=== PATIENT | male | born 1990 | race Caucasian/White ===

== ENCOUNTER 2018-08-09 10:00 | Emergency (ER) | payer SELFPAY ==
--- NOTE | 2018-08-09 10:11 | EDM.PDOC ---
ED HPI GENERAL MEDICAL PROBLEM - General Chief Complaint: Skin Complaint Stated Complaint: VILLAR BITE ON FOOT Time Seen by Provider: 08/09/18 10:07 Source of Information: Reports: Patient History Limitations: Reports: No Limitations - History of Present Illness INITIAL COMMENTS - FREE TEXT/NARRATIVE: HISTORY AND PHYSICAL: History of present illness: Patient is a 27-year-old male who presents to the ED today with concerns of frostbite. A few days ago while at work he was wearing cowboy boots and was out cold for 18 hours. He states the following day his toes turned "black" on his feet. He states this occurred 1 week ago, his saw them made him come in to the ER today. He states that they do not bother him or cause him any pain. Reports he poked a knife into one area, because he could not "feel it". Patient states he is able to wiggle his toes just not feel the tips of them. He has not taken anything for his symptoms. He denies fever, chills, malaise, or all other review of systems. Tdap is up-to- date Review of systems: As per history of present illness and below otherwise all systems reviewed and negative. Past medical history: As per history of present illness and as reviewed below otherwise noncontributory. Surgical history: As per history of present illness and as reviewed below otherwise noncontributory. Social history: See social history for further information Family history: As per history of present illness and as reviewed below otherwise noncontributory. Physical exam: General: patient is alert, oriented, and in no acute distress. He is sitting comfortably on exam table. HEENT: Atraumatic, normocephalic, pupils equal and reactive bilaterally, negative for conjunctival pallor or scleral icterus, mucous membranes moist, TMs normal bilaterally, throat clear, neck supple, nontender, trachea midline. No drooling or trismus noted. No meningeal signs. No hot potato voice noted. Lungs: Clear to auscultation, breath sounds equal bilaterally, chest nontender. Heart: S1S2, regular rate and rhythm without overt murmur Abdomen: Soft, nondistended, nontender. Negative for masses or hepatosplenomegaly. Negative for costovertebral tenderness. Pelvis: Stable nontender. Genitourinary: Deferred. Rectal: Deferred. Skin: See extremities. Intact, warm, dry. No lesions or rashes noted. Extremities: There are dime sized area of darkened skin with minimal sensation to bilateral lateral great toes, on distal tips of toes 2-5 have trace skin discoloration. Specifically, the right big toe has a small cratered area with slightly irritated skin at the center. Patient states he is not able to feel sensation to these areas but he does have full ROM of all toes. Cap refill is less then 3 seconds. Strong DP/PT pulses. Otherwise, neurovascular unremarkable. Neuro: Awake, alert, oriented. Cranial nerves II through XII unremarkable. Cerebellum unremarkable. Motor and sensory unremarkable throughout. Exam nonfocal. Notes: On exam, he does appear to have areas of frostbite to areas on the feet. There is one area on the right big toe where it was evident that he took a knife to it to expose underlying tissue. He has been had open the wound to the underlying tissue, will treat prophylactically to prevent secondary infection. Stressed the importance of following up with our plastic surgeon for definitive care to see if any other treatment is necessary. Supportive care measures were reviewed and discussed. Voices understanding and is agreeable to plan of care. Denies any further questions or concerns at this time. Diagnostics: None Therapeutics: None Prescription: Keflex Impression: 1. Villar bite, toes bilaterally Plan: 1. Take antibiotic as prescribed. Avoid picking or popping any blisters that form. Continue to monitor for improvement as we discussed. 2. You can use ibuprofen or Tylenol as needed for pain or discomfort. 3. Please follow-up with Dr. Rehman (Plastic surgeon), for definitive treatment of frostbite. 4. Return to the ED as needed and as discussed. Definitive disposition and diagnosis as appropriate pending reevaluation and review of above. - Related Data Allergies Allergy/AdvReac Type Severity Reaction Status Date / Time No Known Allergies Allergy Verified 08/09/18 10:08 Home Meds: Home Meds Cephalexin [Keflex] 500 mg PO BID 5 Days #10 capsule 08/09/18 [Rx] ED ROS GENERAL - Review of Systems Review Of Systems: ROS reveals no pertinent complaints other than HPI. ED EXAM, SKIN/RASH Exam: See Below (See dictation) Course - Vital Signs Last Recorded V/S: Last Vital Signs Temp 97.4 F 02/17/19 10:08 Pulse 54 L 08/09/18 10:08 Resp 18 08/09/18 10:08 BP 111/87 08/09/18 10:08 Pulse Ox Departure - Departure Time of Disposition: 10:26 Disposition: Home, Self-Care 01 Clinical Impression: Frostbite Qualifiers: Encounter type: initial encounter Qualified Code(s): T33.90XA - Superficial frostbite of unspecified sites, initial encounter - Discharge Information Prescriptions: Cephalexin [Keflex] 500 mg PO BID 5 Days #10 capsule Instructions: Frostbite, [id number] Referrals: PCP,None [Primary Care Provider] - Forms: ED Department Discharge Additional Instructions: The following information is given to patients seen in the emergency department who are being discharged to home. This information is to outline your options for follow-up care. We provide all patients seen in our emergency department with a follow-up referral. The need for follow-up, as well as the timing and circumstances, are variable depending upon the specifics of your emergency department visit. If you don't have a primary care physician on staff, we will provide you with a referral. We always advise you to contact your personal physician following an emergency department visit to inform them of the circumstance of the visit and for follow-up with them and/or the need for any referrals to a consulting specialist. The emergency department will also refer you to a specialist when appropriate. This referral assures that you have the opportunity for follow-up care with a specialist. All of these measure are taken in an effort to provide you with optimal care, which includes your follow-up. Under all circumstances we always encourage you to contact your private physician who remains a resource for coordinating your care. When calling for follow-up care, please make the office aware that this follow-up is from your recent emergency room visit. If for any reason you are refused follow-up, please contact the [facility] Emergency Department at and asked to speak to the emergency department charge nurse. [facility] [address] [place] [id number] [address] [place] [address] [facility] - Plastic Surgery Professional [facility] [address] [place] [address], [address] [place] [address] 1. Take antibiotic as prescribed. Avoid picking or popping any blisters that form. Continue to monitor for improvement as we discussed. 2. You can use ibuprofen or Tylenol as needed for pain or discomfort. 3. Please follow-up with Dr. Rehman (Plastic surgeon), for definitive treatment of frostbite. 4. Return to the ED as needed and as discussed.
== END 2018-08-09 10:25 | disposition home or self-care (01) ==
LOC: MW.ED 10:00
DX: T33.832A Superficial frostbite of left toe(s), initial encounter (principal); T33.831A Superficial frostbite of right toe(s), initial encounter; X31.XXXA Exposure to excessive natural cold, initial encounter
CPT/HCPCS: 99283